=== PATIENT | female | born 1990 | race Caucasian/White ===

== ENCOUNTER 2017-08-03 19:24 | Emergency (ER) | payer MEDICAID ==
[~2017-08-03] VITALS: Ht 162.6 cm; Wt 77.3 kg
[2017-08-03] MEDS ORDERED: BENZONATATE 100 MG CAPSULE PO ONE (21:30)
[2017-08-03] MEDS ORDERED: IBUPROFEN 800 MG TABLET PO ONE (21:30)
[2017-08-03 22:07] LABS: INFLUENZA TYPE B NEGATIVE FOR TYPE B (NEGATIVE)
[2017-08-03 22:27] VITALS: BP 120/82
== END 2017-08-03 22:29 | disposition home or self-care (01) ==
LOC: EMS 19:25
DX: J06.9 Acute upper respiratory infection, unspecified (principal); J02.9 Acute pharyngitis, unspecified; J45.909 Unspecified asthma, uncomplicated
CPT/HCPCS: 87430; 87804; 99284

== ENCOUNTER 2018-05-26 09:33 | Emergency (ER) | payer MEDICAID ==
[~2018-05-26] VITALS: Ht 167.6 cm; Wt 72.7 kg
[2018-05-26 09:34] VITALS: BP 120/75
[2018-05-26] MEDS ORDERED: LIDOCAINE 1% 10 ML VIAL INJ ONE (10:00)
[2018-05-26] MEDS ORDERED: POVIDONE-IODINE 10% 15 ML SOLUTION UD TP ONE (10:00)
[2018-05-26] MEDS ORDERED: IBUPROFEN 800 MG TABLET PO ONE (10:00)
[2018-05-26] MEDS ORDERED: BACITRACIN 0.9 GM PACKET OINTMENT TP ONE (10:45)
== END 2018-05-26 11:03 | disposition home or self-care (01) ==
LOC: EMS 09:34
DX: S61.211A Laceration without foreign body of left index finger without damage to nail, initial encounter (principal); J45.909 Unspecified asthma, uncomplicated; W26.0XXA Contact with knife, initial encounter; Y93.89 Activity, other specified; Y92.89 Other specified places as the place of occurrence of the external cause; Y99.8 Other external cause status
CPT/HCPCS: 12001; 99284; J3490

== ENCOUNTER 2018-05-28 13:00 | Emergency (ER) | payer MEDICAID ==
[~2018-05-28] VITALS: Ht 170.2 cm; Wt 70.0 kg
[2018-05-28 14:33] VITALS: BP 117/67
== END 2018-05-28 14:35 | disposition home or self-care (01) ==
LOC: EMS 13:00
DX: S61.211D Laceration without foreign body of left index finger without damage to nail, subsequent encounter (principal); J45.909 Unspecified asthma, uncomplicated; X58.XXXD Exposure to other specified factors, subsequent encounter
CPT/HCPCS: 99281

== ENCOUNTER 2018-06-02 16:19 | Emergency (ER) | payer MEDICAID ==
[~2018-06-02] VITALS: Ht 167.6 cm; Wt 72.7 kg
[2018-06-02 18:51] VITALS: BP 126/73
== END 2018-06-02 18:52 | disposition home or self-care (01) ==
LOC: EMS 16:20
DX: S61.211D Laceration without foreign body of left index finger without damage to nail, subsequent encounter (principal); J45.909 Unspecified asthma, uncomplicated; Z91.013 Allergy to seafood; X58.XXXD Exposure to other specified factors, subsequent encounter
CPT/HCPCS: 99282